=== PATIENT | male | born 1960 | race Caucasian/White ===

== ENCOUNTER 2020-05-26 18:47 | Emergency (ER) | payer MEDICAID ==
[2020-05-26] MEDS ORDERED: methylPREDNISolone Sodium Succinate 125 MG/2 ML SDV IM ONE (19:14)
[2020-05-26] MEDS ORDERED: Albuterol/Ipratropium 3.0-0.5 MG/3 ML Neb Soln NEB ONE (19:14)
--- NOTE | 2020-05-26 19:41 | EDM.PDOC ---
ED HPI GENERAL MEDICAL PROBLEM - General Stated Complaint: SOB HIGH BP CHEST PAIN Time Seen by Provider: 05/26/20 19:45 Source of Information: Reports: Patient History Limitations: Reports: No Limitations - History of Present Illness INITIAL COMMENTS - FREE TEXT/NARRATIVE: Patient presented to the ED because of cough and cold x 1 week, productive, x - Related Data Allergies Allergy/AdvReac Type Severity Reaction Status Date / Time No Known Allergies Allergy Verified 01/12/14 12:13 Home Meds: Home Meds Omeprazole Magnesium [Prilosec] 10 mg PO DAILY 01/12/14 [History] Albuterol [Ventolin HFA] 2 dispenser ORAL.INH ASDIRECTED PRN 01/13/14 [History] Aspirin [Brad Chewable Aspirin] 81 mg PO DAILY 05/26/20 [History] Azithromycin [Zithromax] 250 mg PO DAILY #6 tablet 05/26/20 [Rx] Metoprolol Succinate 50 mg PO DAILY 05/26/20 [History] lisinopriL [Lisinopril] 10 mg PO DAILY 05/26/20 [History] predniSONE [Prednisone] 40 mg PO DAILY #10 tablet 05/26/20 [Rx] ED ROS GENERAL - Review of Systems Review Of Systems: See Below Constitutional: Reports: No Symptoms HEENT: Reports: No Symptoms Respiratory: Reports: Cough, Sputum Cardiovascular: Reports: Chest Pain Endocrine: Reports: No Symptoms GI/Abdominal: Reports: No Symptoms : Reports: No Symptoms Musculoskeletal: Reports: No Symptoms Skin: Reports: No Symptoms Neurological: Reports: No Symptoms Psychiatric: Reports: No Symptoms ED EXAM, GENERAL - Physical Exam Exam: See Below Exam Limited By: No Limitations General Appearance: Alert, No Apparent Distress Eye Exam: Bilateral Eye: PERRL Ears: Normal External Exam, Normal Canal Nose: Normal Inspection, Normal Mucosa, No Blood Throat/Mouth: Normal Inspection, Normal Lips, Normal Teeth, Normal Gums Head: Atraumatic, Normocephalic Neck: Normal Inspection, Supple, Non-Tender, Full Range of Motion Respiratory/Chest: No Respiratory Distress, Lungs Clear, Normal Breath Sounds Cardiovascular: Normal Peripheral Pulses, Regular Rate, Rhythm, No Edema, No Gallop, No JVD, No Murmur GI/Abdominal: Normal Bowel Sounds, Soft, Non-Tender, No Organomegaly Back Exam: Normal Inspection, Full Range of Motion Extremities: Normal Inspection, Normal Range of Motion Neurological: Alert, Oriented, CN II-XII Intact Course - Vital Signs Text/Narrative:: Labs/EKG/CXR was discussed with patient and verbalized full understanding ASA 324 mg po x1 duoneb x1 solumedrol 125 mg IM x1 Last Recorded V/S: Last Vital Signs Temp 36.9 C 05/26/20 19:41 Pulse 93 05/26/20 19:41 Resp 22 H 05/26/20 19:41 BP 159/98 H 05/26/20 19:41 Pulse Ox 99 05/26/20 19:41 - Orders/Labs/Meds Orders: Active Orders 24 hr Category Date Time Status Chest 2V [CR] Stat Exams 05/26/20 19:14 Taken Labs: Laboratory Tests 05/26/20 05/26/20 05/26/20 Range/Units 19:10 19:10 19:10 WBC 7.3 (4.5-12.0) X10-3/uL RBC 4.88 (4.30-5.75) x10(6)uL Hgb 15.2 (13.5-17.8) g/dL Hct 44.9 (30.0-51.3) % MCV 92.0 (80-96) fL MCH 31.2 (27.7-33.6) pg MCHC 33.9 (32.2-35.4) g/dL RDW 13.7 (11.5-15.5) % Plt Count 310 (125-369) X10(3)uL MPV 6.0 L (7.4-10.4) fL Neut % (Auto) 71.5 (46-82) % Lymph % (Auto) 18.4 (13-37) % Fisher % (Auto) 7.5 (4-12) % Eos % (Auto) 1 (1.0-5.0) % Baso % (Auto) 2 (0-2) % Neut # (Auto) 5.3 (1.6-8.3) # Lymph # (Auto) 1.3 (0.6-5.0) # Fisher # (Auto) 0.5 (0.0-1.3) # Eos # (Auto) 0.1 (0.0-0.8) # Baso # (Auto) 0.1 (0.0-0.2) # Sodium 125 L (135-145) mmol/L Potassium 3.9 (3.5-5.3) mmol/L Chloride 91 L (100-110) mmol/L Carbon Dioxide 25 (21-32) mmol/L BUN 8 (7-18) mg/dL Creatinine 1.1 (0.70-1.30) mg/dL Est Cr Clr Drug Dosing TNP Estimated GFR (MDRD) > 60 (>60) BUN/Creatinine Ratio 7.3 L (9-20) Glucose 97 (80-116) mg/dL Calcium 9.0 (8.6-10.2) mg/dL Total Bilirubin 0.7 (0.1-1.3) mg/dL AST 24 (5-25) IU/L ALT 40 H (12-36) U/L Alkaline Phosphatase 70 (56-112) IU/L Troponin I 4.6 (4.0-60.3) pg/mL NT-Pro-B Natriuret Pep (<=125) pg/mL Total Protein 7.3 (6.0-8.0) g/dL Albumin 4.0 (3.5-5.2) g/dL Globulin 3.3 g/dL Albumin/Globulin Ratio 1.2 07/22/20 Range/Units 19:10 WBC (4.5-12.0) X10-3/uL RBC (4.30-5.75) x10(6)uL Hgb (13.5-17.8) g/dL Hct (30.0-51.3) % MCV (80-96) fL MCH (27.7-33.6) pg MCHC (32.2-35.4) g/dL RDW (11.5-15.5) % Plt Count (125-369) X10(3)uL MPV (7.4-10.4) fL Neut % (Auto) (46-82) % Lymph % (Auto) (13-37) % Fisher % (Auto) (4-12) % Eos % (Auto) (1.0-5.0) % Baso % (Auto) (0-2) % Neut # (Auto) (1.6-8.3) # Lymph # (Auto) (0.6-5.0) # Fisher # (Auto) (0.0-1.3) # Eos # (Auto) (0.0-0.8) # Baso # (Auto) (0.0-0.2) # Sodium (135-145) mmol/L Potassium (3.5-5.3) mmol/L Chloride (100-110) mmol/L Carbon Dioxide (21-32) mmol/L BUN (7-18) mg/dL Creatinine (0.70-1.30) mg/dL Est Cr Clr Drug Dosing Estimated GFR (MDRD) (>60) BUN/Creatinine Ratio (9-20) Glucose (80-116) mg/dL Calcium (8.6-10.2) mg/dL Total Bilirubin (0.1-1.3) mg/dL AST (5-25) IU/L ALT (12-36) U/L Alkaline Phosphatase (56-112) IU/L Troponin I (4.0-60.3) pg/mL NT-Pro-B Natriuret Pep 123 (<=125) pg/mL Total Protein (6.0-8.0) g/dL Albumin (3.5-5.2) g/dL Globulin g/dL Albumin/Globulin Ratio Meds: Medications Discontinued Medications Generic Name Dose Route Start Last Admin Trade Name Freq PRN Reason Stop Dose Admin Albuterol/Ipratropium 3 ml 05/26/20 19:14 05/26/20 19:22 Duoneb 3.0-0.5 Mg/3 Ml NEB 05/26/20 19:15 3 ml ONETIME ONE Administration Methylprednisolone Sodium Succinate 125 mg 05/26/20 19:14 05/26/20 19:19 Solu-Medrol IM 05/26/20 19:15 125 mg ONETIME ONE Administration Departure - Departure Time of Disposition: 19:00 Disposition: Home, Self-Care 01 Condition: Good Clinical Impression: COPD (chronic obstructive pulmonary disease), Costochondritis, acute Prescriptions: predniSONE [Prednisone] 40 mg PO DAILY #10 tablet Azithromycin [Zithromax] 250 mg PO DAILY #6 tablet Instructions: Costochondritis, [id number], Chronic Obstructive Pulmonary Disease Referrals: Bryan Lopez MD [Primary Care Provider] - Forms: ED Department Discharge Additional Instructions: Please read discharge instructions on COPD and chest wall pain Try to smoke less while being treated Prednisone 20 mg, 2 tablets evry morning for 5 days Z-sampson as directed Follow up as needed Sepsis Event Note (ED) - Focused Exam Vital Signs: Vital Signs Temp Pulse Resp BP Pulse Ox 05/26/20 19:41 36.9 C 93 22 H 159/98 H 99 - My Orders Last 24 Hours: My Active Orders 05/26/20 19:14 Chest 2V [CR] Stat - Assessment/Plan Last 24 Hours: My Active Orders 05/26/20 19:14 Chest 2V [CR] Stat
[2020-05-26 20:25] VITALS: BP 160/98; PULSE 92
--- NOTE | 2020-05-27 11:20 | CR ---
INDICATION: Chest pain and cough. CHEST, TWO VIEWS: PA and two lateral views of the chest were obtained 05/26/20 - no comparisons. Flattened diaphragm leads, prominent AP diameter, and hyperaeration are compatible with COPD. The heart was normal in size and shape. Very minimal tortuosity of the aorta is noted. There appears to be some calcification in the arch of the aorta. Overlying EKG leads are noted. Very minimal dextroconcave scoliosis of the lower middle thoracic spine is noted. No consolidating pneumonia or effusion was seen. However, there is minimal bronchial wall cuffing at the lung bases, which may be on the bases of fibrosis and/or active peribronchial disease and should be correlated clinically. IMPRESSION: 1. Minimal bronchial wall cuffing lung bases, otherwise no acute process suggested. 2. Probable COPD. 3. Mild ASD aorta. MTDD
== END 2020-05-26 20:25 | disposition home or self-care (01) ==
LOC: FB.ED 18:47
DX: J44.9 Chronic obstructive pulmonary disease, unspecified (principal); M94.0 Chondrocostal junction syndrome [Tietze]; Z79.82 Long term (current) use of aspirin; Z79.899 Other long term (current) drug therapy
CPT/HCPCS: 36415; 71046; 80053; 83880; 84484; 85025; 93005; 96372; 99285-25; J2930; J7620-GY